=== PATIENT | female | born 1960 | race Hispanic/Latino ===

== ENCOUNTER 2021-08-03 19:30 | Emergency (ER) | payer SELFPAY ==
[~2021-08-03] VITALS: Ht 154.9 cm; Wt 86.0 kg
[~2021-08-03 19:30] MED LIST: AMITRIPTYLIN100 MG PO; CIPROFLOXACN500 MG PO; LORTAB 5-325 MG1 TAB PO; LOSARTAN POT50 MG PO; MELOXICAM15 MG PO; METFORMIN500 M1 PO; METRONIDAZOL500 MG PO; NOVOLIN N1 ML SC
[2021-08-03 20:48] VITALS: BP 135/63
== END 2021-08-03 20:40 | disposition home or self-care (01) | DRG 395 ==
LOC: ED 19:30
DX: Z43.3 Encounter for attention to colostomy (principal); E11.9 Type 2 diabetes mellitus without complications; Z79.4 Long term (current) use of insulin